=== PATIENT | female | born 1955 | race Caucasian/White ===

== ENCOUNTER → 2017-02-26 | Day surgery (SDC) | payer BC ==
[~2017-02-26] MED LIST: DICLOFENAC PO; ESCITALOPRAM OX10 MG PO; FLAGYL PO; K-DUR20 ME2 PO; MULTI-DAY VITAM1 TAB PO; OMEPRAZOLE40 M1 PO; PRILOSEC20 M1 PO; VOLTAREN75 MG PO
--- NOTE | ~2017-02-26 | OR ---
Unit #: [id number] #: [id number] Patient: GINNY PALMER [id number] [address] [address] [id number] O MR#: [id number] NAME: GINNY PALMER ROOM: Date of Procedure: 02/26/2017 Admission Date: 02/26/2017 Surgeon: Hector River M.D. : 1955 Attending Physician: Hetcor River M.D. Primary Care Physician: Huang Wall M.D. OPERATIVE REPORT JOB NOTE: CC: PRIMARY CARE PHYSICIAN PROCEDURE PERFORMED Colonoscopy to cecum. INDICATIONS FOR PROCEDURE The patient with history of polyps. MEDICATIONS Monitored anesthesia. POSTOPERATIVE FINDINGS 1. Colonoscopy completed to cecum. Prep was good. 2. No polyps, masses, or colitis was seen. 3. Internal hemorrhoids noted. PLAN Colonoscopy in 5 to 10 years. DESCRIPTION OF PROCEDURE The patient was explained of the procedure, risks, and benefits along with risks and benefits of anesthesia. She was brought to the endoscopy room. Propofol anesthesia was given. Rectal exam was done, which was normal. Colonoscope was lubricated, passed up the rectum, advanced under direct vision all the way to the cecum. Cecum was identified by ileocecal valve and appendiceal orifice. I then started to pull the scope out carefully looking. No polyps, masses, or colitis was seen. I retroflexed in the rectum, small hemorrhoids seen. Scope was gently pulled out. She tolerated it well. Dictated by... Meme Desouza/reinaldo TD: 02/27/2017 01:10 JOB #: [id number] Unit #: [id number] #: [id number] Patient: GINNY PALMER OPERATIVE REPORT Page 1 of 1 X Hector River MD X PROCEDURE OPERATIVE NOTE
== END | disposition home or self-care (01) ==
LOC: COPS 10:28
DX: Z12.11 Encounter for screening for malignant neoplasm of colon (principal); K64.8 Other hemorrhoids; Z86.010 Personal history of colon polyps
CPT/HCPCS: J2250